=== PATIENT | female | born 1965 | race Caucasian/White ===

== ENCOUNTER 2019-01-24 10:53 | Outpatient (CLI) | payer BC ==
--- NOTE | 2019-01-24 15:54 | XRAY Report ---
Reason: PAIN IN LEFT FOOT,PAIN OF LEFT ANKLE JOINT Procedure Date: 01/24/2019 Accession Number: [id number] / [id number] Procedure: XRS - Foot 3 View LT CPT Code: FULL RESULT: EXAM: LEFT FOOT RADIOGRAPHY EXAM DATE: 01/24/2019 11:16 AM. CLINICAL HISTORY: Left foot and ankle pain. Remote eversion injury. COMPARISON: ANKLE 3 VIEW LT 01/24/2019 11:17 AM. TECHNIQUE: 3 views. FINDINGS: Bones: No acute fracture. Small posterior calcaneal bone spurs are developing. Joints: Normal. No subluxations. Soft Tissues: Normal. No soft tissue swelling. IMPRESSION: 1. No significant osteoarthritis or evidence of acute or chronic fracture. 2. Small posterior calcaneal bone spurs. RADIA
--- NOTE | 2019-01-24 15:57 | XRAY Report ---
Reason: PAIN IN LEFT FOOT,PAIN OF LEFT ANKLE JOINT Procedure Date: 01/24/2019 Accession Number: [id number] / [id number] Procedure: XRS - Ankle 3 View LT CPT Code: FULL RESULT: EXAM: LEFT ANKLE RADIOGRAPHY EXAM DATE: 01/24/2019 11:16 AM. CLINICAL HISTORY: Left foot pain and ankle pain. COMPARISON: None. TECHNIQUE: 3 views. FINDINGS: Bones: No acute or chronic fracture visualized. An ovoid sclerotic bone lesion of the distal fibula measures up to 4 x 26 mm, likely bone island. Posterior calcaneal bone spurs are moderate in size measuring 7 mm at the Achilles insertion and at the plantar aponeurosis insertion. Joints: Normal. No effusion. No subluxations. The ankle mortise is normally aligned. Soft Tissues: The medial ankle soft tissues appear somewhat prominent. IMPRESSION: 1. Moderate posterior calcaneal bone spurs. 2. Distal fibular bone island. 3. Prominent medial ankle soft tissues could potentially be secondary to a sprain injury if patient's pain is referable to this location. 4. No acute or chronic fracture evident. RADIA
== END 2019-01-24 10:54 | disposition home or self-care (01) ==
LOC: DI.S 10:53
PROVIDERS: ATTEND Physician Assistant
DX: M25.572 Pain in left ankle and joints of left foot (principal); M77.32 Calcaneal spur, left foot

== ENCOUNTER 2019-03-29 10:21 | Outpatient (CLI) | payer BC ==
--- NOTE | 2019-04-01 10:04 | Ultrasound Report ---
Reason: RIGHT UPPER QUADRANT PAIN Procedure Date: 03/29/2019 Accession Number: [id number] / [id number] Procedure: US - Abdomen Limited CPT Code: FULL RESULT: EXAM: ABDOMEN ULTRASOUND LIMITED, RUQ EXAM DATE: 03/29/2019 11:57 AM. CLINICAL HISTORY: Right upper quadrant pain. COMPARISON: None. TECHNIQUE: Real-time scanning was performed with static images obtained. FINDINGS: Liver: Normal in size and background echotexture. 14.4 cm. Right lobe 5.4 x 4.8 x 5.3 cm echogenic mass, possibly a hemangioma. Main portal vein flow: Hepatopetal. Gallbladder: Normal. No stones, wall thickening, or sonographic Miller's sign. Biliary System: CBD measures 4.4 mm. No intrahepatic or extrahepatic ductal dilatation. Free fluid: None. Right kidney: 11.5 cm in length. Normal. IMPRESSION: 1. No cholelithiasis or cholecystitis. 2. 5.4 x 4.8 x 5.3 cm right lobe hepatic echogenic mass, consider hemangioma. Suggest confirmation by dedicated CT or MRI using hemangioma protocol. RADIA
== END 2019-03-29 10:22 | disposition home or self-care (01) ==
LOC: DI 10:21
PROVIDERS: ATTEND Physician Assistant
DX: R16.0 Hepatomegaly, not elsewhere classified (principal)
CPT/HCPCS: 76705

== ENCOUNTER 2020-09-30 14:59 | Outpatient (CLI) | payer BC ==
--- NOTE | 2020-10-01 14:14 | Mammography Report ---
BILATERAL DIGITAL SCREENING MAMMOGRAM 3D/2D: 09/30/2020 CLINICAL: Routine screening. Comparison is made to exam dated: 10/01/2015 mammogram - [facility]. The tissue of both breasts is predominantly fatty. No significant masses, calcifications, or other findings are seen in either breast. There has been no significant interval change. IMPRESSION: NEGATIVE There is no mammographic evidence of malignancy. A 1 year screening mammogram is recommended. This exam was interpreted at Station ID: [id number]. NOTE: For mammograms, a report in lay terms will be sent to the patient. Approximately 15% of breast malignancies will not be visualized mammographically. In the management of a palpable breast mass, a negative mammogram must not discourage biopsy of a clinically suspicious lesion. Electronically Signed By: Kirt shaikh/pieter:10/01/2020 07:53:32 ACR BI-RADS Category 1: Negative 3341F PARENCHYMAL PATTERN: (F) - The breast(s) demonstrate(s) diffuse fatty replacement. BI-RADS CATEGORY: (1) - 1 RECOMMENDATION: (ANNUAL) - Recommend routine annual screening mammography. [id number] 1 year screening LATERALITY: (B)
== END 2020-09-30 15:00 | disposition home or self-care (01) ==
LOC: DI.S 14:59
PROVIDERS: ATTEND Registered Nurse
DX: Z12.31 Encounter for screening mammogram for malignant neoplasm of breast (principal)

== ENCOUNTER 2022-07-04 09:22 | Outpatient (CLI) | payer OTHER ==
[2022-07-04 13:52] LABS: BASOPHILS # (AUTO) 0.1 10^3/uL (0.0-0.1); EOSINOPHILS # (AUTO) 0.1 10^3/uL (0.0-0.7); EOSINOPHILS % (AUTO) 2.2 %; HCT - HEMATOCRIT 46.7 % (37.0-47.0); HGB - HEMOGLOBIN 14.8 g/dL (12.0-16.0); LYMPHOCYTES # (AUTO) 1.8 10^3/uL (1.5-3.5); LYMPHOCYTES % (AUTO) 29.2 %; MEAN CORPUSCULAR HGB CONC 31.7 g/dL (32.0-36.0); MEAN CORPUSCULAR VOLUME 85.1 fL (81.0-99.0); MEAN PLATELET VOLUME 10.6 fL (7.9-10.8); MONOCYTES # (AUTO) 0.5 10^3/uL (0.0-1.0); NEUTROPHILS # (AUTO) 3.7 10^3/uL (1.5-6.6); NEUTROPHILS % (AUTO) 59.4 %; PLT - PLATELET COUNT 233 10^3/uL (130-450); RED BLOOD COUNT 5.49 10^6/uL (4.20-5.40); RED CELL DISTRIBUTION WIDTH 13.2 % (12.0-15.0); WHITE BLOOD COUNT 6.3 x10^3/uL (4.8-10.8)
[2022-07-04 14:02] LABS: ALBUMIN 3.9 g/dL (3.2-5.5); ALBUMIN/GLOBULIN RATIO 1.3 (1.0-2.2); BILIRUBIN,TOTAL 0.6 mg/dL (0.2-1.0); CALCIUM 9.5 mg/dL (8.5-10.3); CREATININE 0.8 mg/dL (0.4-1.0); POTASSIUM 3.9 mmol/L (3.5-5.0); TOTAL PROTEIN 6.8 g/dL (6.7-8.2)
[2022-07-04 14:13] LABS: THYROID STIMULATING HORMONE 3.48 uIU/mL (0.34-5.60)
== END 2022-07-04 09:23 | disposition home or self-care (01) ==
LOC: LAB.S 09:22
PROVIDERS: ATTEND Physician Assistant Medical
DX: R00.2 Palpitations (principal); R07.9 Chest pain, unspecified
CPT/HCPCS: 36415; 80053; 84443; 85025

== ENCOUNTER 2023-05-29 09:39 | Outpatient (CLI) | payer OTHER ==
--- NOTE | 2023-05-30 13:30 | Mammography Report ---
BILATERAL DIGITAL SCREENING MAMMOGRAM 3D/2D: 05/29/2023 CLINICAL: Routine screening. Comparison is made to exams dated: 09/30/2020 mammogram and 10/01/2015 mammogram - [facility]. There are scattered areas of fibroglandular density in both breasts (category b / 25%-50% glandular t issue). No significant masses, calcifications, or other findings are seen in either breast. There has been no significant interval change. IMPRESSION: NEGATIVE There is no mammographic evidence of malignancy. A 1 year screening mammogram is recommended. Based on the Tyrer Cuzick model (a risk assessment model) the patients lifetime risk is 9.2% and her 10 year risk is 3.6%. According to the ACR, ACS, and NCCN guidelines, an annual breast MRI exam russell g with mammogram is recommended if the patients lifetime risk is 20% or greater. This exam was interpreted at Station ID: [id number]. NOTE: For mammograms, a report in lay terms will be sent to the patient. Approximately 15% of breast malignancies will not be visualized mammographically. In the management of a palpable breast mass, a negative mammogram must not discourage biopsy of a clinically suspicious lesion. Electronically Signed By: Sanford rogers/pieter:05/29/2023 12:31:36 letter sent: No_Letter ACR BI-RADS Category 1: Negative 3341F PARENCHYMAL PATTERN: (A) - The breast(s) demonstrate(s) scattered fibroglandular densities. BI-RADS CATEGORY: (1) - 1 Mammogram [id number] 1 year screening LATERALITY: (B)
== END 2023-05-29 09:40 | disposition home or self-care (01) ==
LOC: DI.S 09:39
PROVIDERS: ATTEND Physician Assistant
DX: Z12.31 Encounter for screening mammogram for malignant neoplasm of breast (principal); R92.323 Mammographic fibroglandular density, bilateral breasts